=== PATIENT | female | born 1995 | race Caucasian/White ===

== ENCOUNTER 2020-09-14 22:30 | Emergency (ER) | payer OTHER ==
[~2020-09-14] VITALS: Ht 162.6 cm; Wt 53.0 kg
[2020-09-14 22:30] VITALS: BP 152/94
--- NOTE | 2020-09-14 22:41 | PHYS DOC ---
Adult General HPI HPI Patient is a 25-year-old female who presents via EMS after accidentally ingesting a large amount of opiates requiring Narcan by EMS. EMS gave 2 mg, to which she responded almost immediately. Awake, alert and oriented, able to sit stand and walk without issue upon arrival EKG EKG [] Radiology/Procedures Radiology/Procedures [] Heart Score C/O Chest Pain: N/A Risk Factors: Risk Factors: DM, Current or recent (<one month) smoker, HTN, HLP, family history of CAD, obesity. Risk Scores: Risk Factors: DM, Current or recent (<one month) smoker, HTN, HLP, family history of CAD, obesity. Course & Med Decision Making Course & Med Decision Making Patient is a 25-year-old female presents after accidentally taking too many opiates requiring Narcan administration. Arrived to the emergency department awake, alert and oriented x4, able to sit, stand and walk without issue Patient told nurse that she feels well, does not want to see the doctor and does not want any work-up and wants discharge. [] Dragon Disclaimer Dragon Disclaimer This electronic medical record was generated, in whole or in part, using a voice recognition dictation system. Departure Departure: Impression: Primary Impression: Overdose Disposition: LEFT WITHOUT BEING SEEN Condition: STABLE Referrals: SARAH CONWAY Patient Instructions: Narcotic Overdose Additional Instructions: Please read all the attached information very carefully. Please do not take any medications that are prescribed to you by the physician. Please follow-up with your primary care physician as soon as you can. Please come back to the ED with new or concerning symptoms. JONO MEZA MD Sep 14, 2020 22:41
== END 2020-09-14 22:45 | disposition left against medical advice (07) ==
LOC: ER 22:30 → MERGE 22:30 → ER 22:45
DX: T40.0X1A Poisoning by opium, accidental (unintentional), initial encounter (principal); R53.1 Weakness; Y92.89 Other specified places as the place of occurrence of the external cause
CPT/HCPCS: 99283